=== PATIENT | male | born 1975 | race Caucasian/White ===

== ENCOUNTER 2017-12-02 15:06 | Outpatient (CLI) | payer BC, SELFPAY ==
[2017-12-02 15:37] LABS: Abs Immature Grans 0.01 k/cumm (0.0-0.09); Absolute Basophil Count 0.03 k/cumm (0.0-0.2); Absolute Lymphocyte Count 1.02 k/cumm (1.2-3.4); Absolute Neutrophil Count 1.99 k/cumm (1.2-6.7); Basophils % 0.8; Eosinophils % 2.8; HCT 39.7 % (40.0-50.0); HGB 14.1 g/dL (13.5-17.5); Immature Grans % 0.3; Lymphocytes % 28.7; Mean Corp. HGB Concentration 35.5 g/dL (32.0-36.0); Mean Corpuscular Hemoglobin 31.5 pg (27.0-33.0); Mean Corpuscular Volume 88.8 fL (80-95); Monocytes % 11.3; Neutrophils % 56.1; Platelet Count 181 x1000/uL (130-400); RBC 4.47 m/cumm (4.50-6.00); RBC Distribution Width 11.9 % (11.8-14.1); White Blood Cell Count 3.55 k/cumm (4.4-10.8)
[2017-12-02 16:34] LABS: ALT 41 U/L (12-78); AST 24 U/L (15-37); Alkaline Phosphatase 67 U/L (46-116); Anion Gap 7.4 mmol/L (3-11); BUN 13 mg/dL (7-18); Bilirubin, Total 0.3 mg/dL (0.2-1.0); CO2 29.6 mmol/L (21.0-32.0); CREATININE 0.86 mg/dL (0.70-1.30); Calcium 8.6 mg/dL (8.5-10.1); Chloride 105 mmol/L (98-107); Glucose 108 mg/dL (70-100); LDH 157 U/L (85-227); Potassium 3.6 mmol/L (3.5-5.1); Sodium 142 mmol/L (136-145); Total Protein 7.2 g/dL (6.4-8.2)
[2017-12-03 18:54] LABS: Beta-HCG, Quant, Tumor Marker <0.6 IU/L (<1.4)
[2017-12-04 10:06] LABS: AFP Tumor Marker 2.2 ng/mL (<8.1)
== END 2017-12-02 15:26 ==
PROVIDERS: PCP Nurse Practitioner Family; Visit Provider Internal Medicine
DX: C62.90 Malignant neoplasm of unspecified testis, unspecified whether descended or undescended (principal)
CPT/HCPCS: 36415; 80053; 82105; 83615; 84702; 85025

== ENCOUNTER 2018-09-30 10:28 | Outpatient (CLI) | payer BC, SELFPAY ==
[2018-09-30 12:04] LABS: Calculated LDL 117 mg/dL; Cholesterol 204 mg/dL (50-200); HDL Cholesterol 39 mg/dL (40-60); Triglyceride 242 mg/dL (30-150)
== END 2018-09-30 10:48 ==
PROVIDERS: PCP Nurse Practitioner Family; Visit Provider Nurse Practitioner Family
DX: Z13.220 Encounter for screening for lipoid disorders (principal)
CPT/HCPCS: 36415; 80061; 83721

== ENCOUNTER 2021-02-01 15:08 | Outpatient (CLI) | payer BC, SELFPAY ==
--- NOTE | 2021-02-01 15:00 | DI.RAD_ITS ---
Exam(s) XR TIB/FIB LT EXAM: XR TIB/FIB LT CLINICAL HISTORY: chronic gramajo pain gramajo splint vs. stress fx,M79.623 TECHNIQUE: COMPARISON: No exams were available for comparison FINDINGS: Four views were obtained. No bony or soft tissue abnormality seen. There is no specific evidence of a stress fracture. If there is a high clinical suspicion of stress fracture, additional evaluation with MR may be considered. IMPRESSION: RADIATION DOSE DELIVERED: Total DLP
== END 2021-02-01 15:28 ==
PROVIDERS: PCP Nurse Practitioner Family; Visit Provider Nurse Practitioner Family
DX: M79.662 Pain in left lower leg (principal)
CPT/HCPCS: 73590

== ENCOUNTER 2021-03-09 03:22 | Outpatient (CLI) | payer BC, SELFPAY ==
[2021-03-10 10:26] LABS: HIV-1/2 Ag & Ab Screen Negative (Negative)
== END 2021-03-09 03:23 | disposition home or self-care (01) ==
PROVIDERS: PCP Nurse Practitioner Family; Visit Provider Nurse Practitioner Family
DX: Z11.4 Encounter for screening for human immunodeficiency virus [HIV] (principal)
CPT/HCPCS: 36415; 87389

== ENCOUNTER 2021-03-14 02:57 | Outpatient (CLI) | payer BC, SELFPAY ==
[2021-03-14 12:46] LABS: Abs Immature Grans 0.01 10^3/uL (0.0-0.06); Absolute Basophil Count 0.04 10^3/uL (0.0-0.2); Absolute Eosinophil Count 0.16 10^3/uL (0.0-0.7); Absolute Lymphocyte Count 1.15 10^3/uL (1.2-3.4); Absolute Monocyte Count 0.38 10^3/uL (0.1-0.8); Absolute Neutrophil Count 1.97 10^3/uL (1.2-6.7); Basophils % 1.1; Eosinophils % 4.3; HGB 14.4 g/dL (13.5-17.5); Immature Grans % 0.3; MCH 30.3 pg (27.0-33.0); MCHC 34.3 % (32.0-36.0); MCV 88.2 fL (80-95); MPV 9.2 fL (8.0-11.0); Monocytes % 10.2; Neutrophils % 53.1; Nucleated RBC 0 %; Platelet Count 193 10^3/uL (130-400); RBC 4.76 10^6/uL (4.36-5.78); RDW-SD 39.3 fL; WBC 3.71 10^3/uL (4.4-10.8)
[2021-03-14 13:29] LABS: ALT 34 U/L (16-63); AST 21 U/L (15-37); Albumin 4.3 g/dL (3.4-5.0); Alkaline Phosphatase 62 U/L (46-116); BUN 12 mg/dL (7-18); Bilirubin, Total 0.4 mg/dL (0.2-1.0); CREATININE 0.9 mg/dL (0.70-1.30); Calcium 8.7 mg/dL (8.5-10.1); Chloride 101 mmol/L (98-107); Glucose 102 mg/dL (74-106); LDH 138 U/L (85-227); Potassium 4.2 mmol/L (3.5-5.1); Sodium 139 mmol/L (136-145); Total Protein 7.6 g/dL (6.4-8.2)
[2021-03-15 09:27] LABS: AFP Tumor Marker 4.7 ng/mL (<8.1)
[2021-03-15 13:05] LABS: Beta-HCG, Quant, Tumor Marker <0.6 IU/L (<1.4)
== END 2021-03-14 02:58 | disposition home or self-care (01) ==
LOC: LBO 02:58
PROVIDERS: PCP Nurse Practitioner Family; Visit Provider Internal Medicine
DX: Z85.47 Personal history of malignant neoplasm of testis (principal)
CPT/HCPCS: 36415; 80053; 82105; 83615; 84702; 85025

== ENCOUNTER 2021-03-15 10:00 | Outpatient (CLI) | payer BC, SELFPAY ==
--- NOTE | 2021-03-15 | DI.RAD_ITS ---
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 TECHNIQUE: 2D digital imaging was performed. COMPARISON: CR CHEST 2 VIEWS PA,LAT from 10/19/2016 FINDINGS: Heart size is normal. The mediastinum is not widened. Lungs are presently clear. Previously present right lower lobe infiltrate which was evident in 2017 has resolved. No infiltrates nor pleural effusions. Right shoulder arthroplasty again noted. IMPRESSION: No acute pulmonary findings. DATA REPOSITORY: RADIATION DOSE DELIVERED:
== END 2021-03-15 10:20 ==
PROVIDERS: PCP Nurse Practitioner Family; Visit Provider Internal Medicine
DX: Z08 Encounter for follow-up examination after completed treatment for malignant neoplasm (principal); Z85.47 Personal history of malignant neoplasm of testis
CPT/HCPCS: 71046

== ENCOUNTER 2021-06-15 03:23 | Observation (INO) | payer BC, SELFPAY ==
[2021-06-15] VITALS (26 sets, daily range): BP systolic 116–132; BP diastolic 66–80; PULSE 52–64; RESP 10–21; TEMP 36.3–36.9; O2SAT 94–98
--- NOTE | 2021-06-15 | DI.MRI_ITS ---
Exam(s) MR BRAIN WO EXAM: MR BRAIN WO CLINICAL HISTORY: head injury TECHNIQUE: Multiplanar multisequence MRI of the brain was performed. COMPARISON: CT CT HEAD WO from 06/15/2021 FINDINGS: VENTRICLES AND EXTRA AXIAL SPACES: Normal in size and morphology for the patient's age. MIDLINE SHIFT: None. CEREBRAL PARENCHYMA: No focus of restricted diffusion to suggest acute infarct. No space-occupying le gali identified. HEMORRHAGE: None. BRAINSTEM/CEREBELLUM: Normal. CALVARIUM: Normal. VISUALIZED PARANASAL SINUSES/MASTOIDS:Clear. [place] OF [place]: Normal flow void. PITUITARY GLAND: Unremarkable. OTHER FINDINGS: None. IMPRESSION: Unremarkable MRI of the brain. DATA REPOSITORY:
--- NOTE | 2021-06-15 03:15 | DI.CT_ITS ---
Exam(s) CT CHEST/ABD/PEL W CT THORACIC LUMBAR SPINE REC EXAM: CT CHEST/ABD/PEL W CLINICAL HISTORY: pain between shoulder blades, fall, trauma. TECHNIQUE: Imaging Protocol: Axial computed tomography images with coronal and sagittal reformatted images were created and reviewed CONTRAST MATERIAL: Intravenous: Omnipaque 350 Contrast volume:100 ml Oral: no COMPARISON: CT CHEST ABD PELVIS WITH CONTRAST from 12/17/[address] THORACIC LUMBAR SPINE REC from 06/15/2021 FINDINGS: CHEST: Tracheobronchial tree: Patent where visualized. Mediastinum and Phyllis: No dominant adenopathy or fluid collection. Pulmonary parenchyma: Dependent changes. No consolidation or dominant measurable mass. Pleura: No effusion or pneumothorax. Lymph nodes: Within normal limits. Aorta: Thoracic portion non-dilated. Heart: Normal size. Bones: Unremarkable for age. No evidence of fracture.. Minimal degenerative changes in the thoracic spine. Right shoulder prosthesis. ABDOMEN: Liver: Normal density. No measurable mass. Gallbladder and biliary tract: No radiodense calculus or dilation. Pancreas: Normal density, no abnormal calcifications or inflammatory process. Spleen: Normal. Kidneys: Normal size, contour and axis. No radiodense stones or obstructive uropathy. No masses seen. Adrenal glands: No masses seen. Aorta: Abdominal portion non-dilated. Lymph nodes: Within normal limits. Soft tissues: Unremarkable. PELVIS: Bladder: Symmetric distention, no gross wall thickening. Bowel: Increased stool descending rectosigmoid. No obstruction or bowel wall thickening. Peritoneal cavity: No ascites, collection or mesenteric inflammatory response. Bones: Lumbar spine: Old right sided transverse process fractures. Degenerative disc changes at L3-4 and L4-5. no pelvic fracture. Reproductive organs: Within normal limits. IMPRESSION: No acute abnormality in the chest abdomen or pelvis.. Old right-sided transverse process fractures i n the lumbar spine. No acute fracture. RADIATION DOSE DELIVERED: 1486.26 mGy.cm Total DLP DATA REPOSITORY: All CT scans at this facility are submitted to the National Radiology Data Registry (NRDR) Dose Index Registry (DIR) with the [employer] (ACR). RADIATION OPTIMIZATION: All CT scans at this facility use at least one of these dose optimization te chniques: automated exposure control; mA and/or kV adjustment per patient size (includes targeted exa ms where dose is matched to clinical indication); or iterative reconstruction.
--- NOTE | 2021-06-15 03:15 | DI.CT_ITS ---
Exam(s) CT HEAD CERVICAL SPINE WO EXAM: CT HEAD CERVICAL SPINE WO CLINICAL HISTORY: trauma, fall. TECHNIQUE: Imaging Protocol: Axial computed tomography images with coronal and sagittal reformatted images were created and reviewed COMPARISON: No exams were available for comparison FINDINGS: Head CT Ventricles and Extra axial spaces: Normal in size and morphology for the patient's age. Hemorrhage: None. Cerebral parenchyma: Normal. Midline shift: None. Brainstem/Cerebellum: Normal. Calvarium: Normal. Visualized Paranasal sinuses/Mastoids: Clear. Cervical Spine CT BONES: Vertebral body heights are maintained. Alignment is normal. There is no evidence of acute frac ture. Degenerative disc changes degenerative changes are seen at C5-6. . SOFT TISSUES: No paraspinal hematoma. The airway appears intact. No pneumothorax is seen at the lung apices. IMPRESSION: Head CT: No acute abnormality. C-spine CT: Mild degenerative changes, no acute abnormality. RADIATION DOSE DELIVERED: 1,621.67mGy.cm Total DLP DATA REPOSITORY: All CT scans at this facility are submitted to the National Radiology Data Registry (NRDR) Dose Index Registry (DIR) with the [employer] (ACR). RADIATION OPTIMIZATION: All CT scans at this facility use at least one of these dose optimization te chniques: automated exposure control; mA and/or kV adjustment per patient size (includes targeted exa ms where dose is matched to clinical indication); or iterative reconstruction.
--- NOTE | 2021-06-15 03:28 | W.ED.GENAD ---
Discharge Plan Disposition Patient Disposition: [facility] INPATIENT Condition: Stable Discharge Details Clinical Impression: Fall, Head trauma, Observed seizure-like activity Admit Date/Time: 06/15/21 04:49 Admit Provider: Asa Berger Attending Provider: Asa Berger Primary Care Provider: Lindsey Dhillon ED Provider: Ronald Matias Medical Decision Making 343--45-year-old male here after slip and fall on ice with head trauma, subsequent loss of consciousness and questionable seizure activity, vomiting in route. Patient seems fatigued and slightly altered with GCS of 14. He is complaining of neck pain and pain between his shoulder blades. Patient is hemodynamically stable. I am concerned about acute life-threatening intracranial traumatic hemorrhage as well as cervical fracture or vascular injury. Plan to obtain CT imaging. I will maintain spinal precautions. 430-- CT head, ctl spine and chest/abd/pelv interpreted by radiology and negative for acute injury. Suspect severe concussion. cpsine cleared by me - no midline tenderness. He is tender left posterior lateral neck over trapezius. Given mechanism, LOC and seizure activity, ongoing nausea, plan for hospitalization for observation and potential repeat CT head. 442 --screening EKG was reviewed and interpreted by me: Sinus bradycardia 56 bpm, prolonged FL with FL interval of 216, ST elevation noted 1mm or less, likely benign early repolarization. Patient has no chest pain but will send troponin. I spoke with Dr. Montero, on-call hospitalist, discussed ED presentation and course, she will admit the patient. HPI General Mode of arrival: EMS. Date/Time Provider Initiated Documentation: 06/15/21 03:24. Limitations to Documentation: no limitations. Information obtained by: patient and EMS. HPI Narrative: 45-year-old male presents with EMS with chief complaint of neck pain. Patient apparently slipped and fell on ice outside his home and struck his head. He then went inside and apparently lost consciousness in the bathroom and fell again. There was questionable seizure activity. He then regained consciousness. EMS notes a few episodes of vomiting in route. He has complained of neck pain as well as pain deep between his scapula. Pain is moderate. No modifiers. Patient denies associated chest pain or abdominal pain. He did describe to EMS having lower back pain at scene with movement. He has no associated numbness or tingling in his lower extremities. Patient was given Zofran ODT by EMS. IV was established by EMS. Related Data Home Medications Medication Instructions Recorded Confirmed acetaminophen 500 mg tablet 1,000 mg PO Q6H PRN 10/08/16 06/15/21 fluocinonide-emollient 0.05 % 1 applic TOPICAL 2-4 times daily 02/25/20 06/15/21 topical cream (Fluocinonide-E) PRN #60 gm albuterol sulfate 90 mcg/actuation 1 - 2 puff INHALATION .Q4-6H PRN 05/20/20 06/15/21 aerosol inhaler (ProAir HFA) #1 unit montelukast 10 mg tablet 10 mg PO DAILY #90 tab-cap 10/05/20 06/15/21 (Singulair) ibuprofen 200 mg capsule 400 mg PO Q6H PRN cap 02/01/21 06/15/21 cetirizine 10 mg tablet (Zyrtec) 10 mg PO DAILY #90 tab-cap 05/03/21 06/15/21 Previous Rx's Medication Instructions Recorded fluocinonide-emollient 0.05 % 1 applic TOPICAL 2-4 times daily 02/25/20 topical cream (Fluocinonide-E) PRN #60 gm albuterol sulfate 90 mcg/actuation 1 - 2 puff INHALATION .Q4-6H PRN 05/20/20 aerosol inhaler (ProAir HFA) #1 unit montelukast 10 mg tablet 10 mg PO DAILY #90 tab-cap 10/05/20 (Singulair) cetirizine 10 mg tablet (Zyrtec) 10 mg PO DAILY #90 tab-cap 05/03/21 Allergies Allergy/AdvReac Type Severity Reaction Status Date / Time dander Allergy Intermediate nasal Uncoded 06/15/21 03:26 congestion/asthma General Stated Complaint: HeadInjury ANNALISE: 2 Review of Systems Narrative: patient slightly altered limiting ros Eyes Eyes: Denies loss of vision Cardiovascular Cardiovascular: Denies chest pain and Denies dyspnea Respiratory Respiratory: Denies dyspnea Gastrointestinal Gastrointestinal: Denies abdominal pain Musculoskeletal Musculoskeletal: Reports as per HPI Neurologic Neurologic: Reports as per HPI and Denies loss of vision PFSH All Active Problems (Updated 06/15/21 @ 07:19 by Antonette Cortez MD) Concussion (Acute) Neck muscle strain (Acute) Hypokalemia (Acute) Fall (Acute) Head trauma (Acute) Observed seizure-like activity (Acute) Hyperlipidemia, unspecified (Chronic) 09/2018 labs: 10-year ASCVD risk = ~1.7% Asthma (Chronic 09/19/12) Spirometry 06/2011--mild obstructive airway disease with sig bronchodilator response Atopic dermatitis (Chronic) Surgical History Excision Lipoma, Neck (12/17/14) R shoulder surgery (~2006) x2 (2006 Michelle at [facility] then 2011 Jyoti at [facility]) Retroperitoneal lymph node dissection, robot-assisted (08/28/16) For recurrent non-seminomatous germ cell tumor. 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 [employer] Pets and animals: Yes Pets and animals: dog(s) and other Details: Hedgehog Sexually active: Yes Do you think of yourself as: straight/heterosexual Current gender identity: male What is your relationship status?: How often do you talk on the phone with friends or family?: twice per week How often do you get together with friends or relatives?: once per week Do you belong to any clubs or organized social groups?: no Panel score (0-1 are the most socially isolated patients): 2 What type of physical activity do you participate in: bicycling, resistance training, other Details: rowing and running Duration: 45-60 minutes/day Frequency: 5-6 times per week Special lexi needs: No Seatbelt use: always Helmet use: Yes Drive intox or ride w/intox warehouse delivery driver: No Water heater temp set <120 deg: Yes Working smoke detector in home: Yes Fire extinguisher in home: Yes Carbon monox detector in home: Yes Firearms in home: No Do you feel safe at home: Yes Do you feel safe in your relationship?: Yes Exam Const General: cooperative HENMT Mouth: moist mucous membranes Eyes EOM: EOM intact bilaterally Neck Neck: trachea midline and supple Resp Auscultation: clear to auscultation bilaterally, no rales, no rhonchi and no wheezes Cardio Rate: bradycardic (50-60s) Rhythm: regular rhythm GI Palpation: soft, not firm, no guarding, no masses, not rigid and nontender Back/Spine/Pelvis Cervical Spine: collar present Skin Trauma: abrasion (rt hand) Neuro General: patient alert, patient awake, patient oriented x3 and tone normal Cranial Nerves: PERRL Speech: speech normal Motor: strength 5/5 throughout Sensory Exam: no sensory deficits noted Other: GCS 14 [id number] Extrem General: no edema Psych Appearance: grossly normal Course Vital Signs Vital signs: Vital Signs Temperature 36.5 C 06/15/21 03:22 Pulse 56 L 06/15/21 03:22 Respiratory Rate 13 06/15/21 03:22 Blood Pressure 132/78 06/15/21 03:22 Pulse Oximetry 98 06/15/21 03:22 Temperature 36.5 C 06/15/21 03:22 Temperature Source Skin 06/15/21 03:22 Pulse 56 L 06/15/21 03:22 Respiratory Rate 13 06/15/21 03:22 Blood Pressure 132/78 06/15/21 03:22 Blood Pressure Position Supine 06/15/21 03:22 Pulse Oximetry 98 06/15/21 03:22 Oxygen Delivery Method Room Air 06/15/21 03:22 Oxygen Flow Rate 0 06/15/21 03:22 Pain Level 8 06/15/21 03:22
[2021-06-15 03:38] LABS: Abs Immature Grans 0.03 10^3/uL (0.0-0.06); Absolute Basophil Count 0.07 10^3/uL (0.0-0.2); Absolute Eosinophil Count 0.21 10^3/uL (0.0-0.7); Absolute Lymphocyte Count 2.05 10^3/uL (1.2-3.4); Absolute Neutrophil Count 2.49 10^3/uL (1.2-6.7); Basophils % 1.3; Eosinophils % 3.9; HCT 41.6 % (40.0-50.0); HGB 14.2 g/dL (13.5-17.5); Immature Grans % 0.6; Lymphocytes % 38.3; MCH 30.1 pg (27.0-33.0); MCHC 34.1 % (32.0-36.0); MCV 88.1 fL (80-95); MPV 9.5 fL (8.0-11.0); Monocytes % 9.3; Neutrophils % 46.6; Nucleated RBC 0 %; Platelet Count 206 10^3/uL (130-400); RBC 4.72 10^6/uL (4.36-5.78); RDW 11.9 % (11.8-14.1); RDW-SD 37.9 fL; WBC 5.35 10^3/uL (4.4-10.8)
[2021-06-15 03:57] LABS: ALT 32 U/L (16-63); AST 17 U/L (15-37); Albumin 4.3 g/dL (3.4-5.0); Alkaline Phosphatase 54 U/L (46-116); Anion Gap 8.7 mmol/L (3-11); BUN 16 mg/dL (7-18); Bilirubin, Total 0.3 mg/dL (0.2-1.0); CO2 27.3 mmol/L (21.0-32.0); Calcium 8.8 mg/dL (8.5-10.1); Chloride 103 mmol/L (98-107); Glucose 153 mg/dL (74-106); Potassium 3.2 mmol/L (3.5-5.1); Sodium 139 mmol/L (136-145); Total Protein 7.7 g/dL (6.4-8.2)
[2021-06-15] MEDS: Omnipaque 350 MG/ML 100 ML BTL IJ (03:57)
[2021-06-15] MEDS: Normal Saline Flush 10 ML SYR IVP ×2 (03:58→04:45)
--- NOTE | 2021-06-15 04:10 | DI.VRAD_ITS ---
PROCEDURE INFORMATION: Exam: CT Head Without Contrast Exam date and time: 06/15/2021 3:41 AM Age: 45 years old Clinical indication: Injury or trauma; Concussion/head injury; Consciousness not specified; Injury date: 06/15/21; Injury details: Fall, trauma TECHNIQUE: Imaging protocol: Computed tomography of the head without contrast. Radiation optimization: All CT scans at this facility use at least one of these dose optimization techniques: automated exposure control; mA and/or kV adjustment per patient size (includes targeted exams where dose is matched to clinical indication); or iterative reconstruction. COMPARISON: 1. SOFT TISSUE HEAD OR NECK US ([id number]) 10/04/2014 1:32 PM 2. MR NECK SOFT TISSUE^ROUTINE 10/12/2014 10:28 AM FINDINGS: Brain: There is mild diffuse cerebral atrophy present. No hemorrhage. Unremarkable white matter. No mass effect. Cerebral ventricles: No ventriculomegaly. Paranasal sinuses: Visualized sinuses are unremarkable. No fluid levels. Mastoid air cells: Visualized mastoid air cells are well aerated. Bones/joints: Unremarkable. No acute fracture. Soft tissues: Unremarkable. IMPRESSION: No acute intracranial abnormality. PROCEDURE INFORMATION: Exam: CT Cervical Spine Without Contrast Exam date and time: 06/15/2021 3:41 AM Age: 45 years old Clinical indication: Injury or trauma; Concussion/head injury; Consciousness not specified; Injury date: 06/15/21; Injury details: Fall, trauma TECHNIQUE: Imaging protocol: Computed tomography images of the cervical spine without contrast. Radiation optimization: All CT scans at this facility use at least one of these dose optimization techniques: automated exposure control; mA and/or kV adjustment per patient size (includes targeted exams where dose is matched to clinical indication); or iterative reconstruction. COMPARISON: 1. SOFT TISSUE HEAD OR NECK US ([id number]) 10/04/2014 1:32 PM 2. MR NECK SOFT TISSUE^ROUTINE 10/12/2014 10:28 AM FINDINGS: Bones/joints: No acute fracture. Normal alignment. Endplate degenerative changes at the C5-C6 level. Discs/Spinal canal/Neural foramina: No significant disc protrusion. No severe spinal canal stenosis. No significant neural foraminal narrowing. Lungs: Lung apices are normal. Soft tissues: Unremarkable. IMPRESSION: 1. No acute fracture or subluxation. 2. Degenerative changes at the C5-C6 level. Dictated and Authenticated by: Francisco Traylor MD. Ordering:LUIS Cardenas MD
--- NOTE | 2021-06-15 04:19 | DI.VRAD_ITS ---
PROCEDURE INFORMATION: Exam: CT Chest With Contrast; Diagnostic Exam date and time: 06/15/2021 3:45 AM Age: 45 years old Clinical indication: Injury or trauma; Generalized; Blunt trauma (contusions or hematomas); Injury date: 06/15/21; Injury details: Fall, trauma, pain between shoulder blades TECHNIQUE: Imaging protocol: Diagnostic computed tomography of the chest with contrast. Radiation optimization: All CT scans at this facility use at least one of these dose optimization techniques: automated exposure control; mA and/or kV adjustment per patient size (includes targeted exams where dose is matched to clinical indication); or iterative reconstruction. Contrast material: OMNI 350; Contrast volume: 100 ml; Contrast route: INTRAVENOUS (IV); COMPARISON: 1. CT CHEST ABD PELVIS WITH CONTRAST 03/19/2017 11:[address] CHEST ABD PELVIS WITH CONTRAST 12/17/2016 9:14 AM FINDINGS: Lungs: Unremarkable. No consolidation. No masses. Pleural spaces: Unremarkable. No pneumothorax. No pleural effusion. Heart: Unremarkable. No cardiomegaly. No pericardial effusion. Aorta: Unremarkable. No aortic aneurysm. Lymph nodes: Unremarkable. No enlarged lymph nodes. Bones/joints: Unremarkable. No acute fracture. Soft tissues: Unremarkable. IMPRESSION: No acute findings. PROCEDURE INFORMATION: Exam: CT Abdomen And Pelvis With Contrast Exam date and time: 06/15/2021 3:45 AM Age: 45 years old Clinical indication: Injury or trauma; Generalized; Blunt trauma (contusions or hematomas); Injury date: 06/15/21; Injury details: Fall, trauma, pain between shoulder blades TECHNIQUE: Imaging protocol: Computed tomography of the abdomen and pelvis with contrast. Radiation optimization: All CT scans at this facility use at least one of these dose optimization techniques: automated exposure control; mA and/or kV adjustment per patient size (includes targeted exams where dose is matched to clinical indication); or iterative reconstruction. Contrast material: OMNI 350; Contrast volume: 100 ml; Contrast route: INTRAVENOUS (IV); COMPARISON: 1. CT CHEST ABD PELVIS WITH CONTRAST 03/19/2017 11:[address] CHEST ABD PELVIS WITH CONTRAST 12/17/2016 9:14 AM FINDINGS: Liver: Normal. No mass. Gallbladder and bile ducts: Normal. No calcified stones. No ductal dilation. Pancreas: Normal. No ductal dilation. Spleen: Normal. No splenomegaly. Adrenal glands: Normal. No mass. Kidneys and ureters: Normal. No hydronephrosis. Stomach and bowel: Unremarkable. No obstruction. No mucosal thickening. Appendix: No evidence of appendicitis. Intraperitoneal space: Unremarkable. No free air. No significant fluid collection. Vasculature: Unremarkable. No abdominal aortic aneurysm. Lymph nodes: Unremarkable. No enlarged lymph nodes. Urinary bladder: Unremarkable as visualized. Reproductive: Unremarkable as visualized. Bones/joints: Unremarkable. No acute fracture. Soft tissues: Unremarkable. IMPRESSION: No acute findings. Dictated and Authenticated by: Asa Reis MD. Ordering:LUIS Cardenas MD
--- NOTE | 2021-06-15 04:30 | RT.EKG_ITS ---
APPROVED REPORT Exam: Resting ECG Reason for Exam: loss of consciousness Patient Location: E HR:56 bpm ECG Measurements Heart Rate 56 AXIS MS 216 P 5 QRSd 104 QRS 52 QT 430 T 36 QTc 415 Conclusion Sinus bradycardia...rate< 60 Prolonged MS interval...MS >210, V-rate 50- 90 ST elev, probable normal early repol pattern...ST elevation, age<55
[2021-06-15] MEDS: Ondansetron 4 MG/2 ML VIAL IVP (04:45)
[2021-06-15] MEDS: Lactated Ringers 1,000 ML 125 ML IV (04:45)
[2021-06-15 04:55] LABS: Source Nasal/Nares
[2021-06-15 05:02] LABS: Troponin I < 50 ng/L (<or=60)
[2021-06-15] MEDS: Potassium Chloride Liquid 20 MEQ PKT 40 MEQ PO (06:16)
--- NOTE | 2021-06-15 06:57 | W.PM.HP.N ---
Date of service: 06/15/21 Time of Service: 04:50 Assessment and Plan Assessment and plan (1) Fall: Status: Acute Assessment and plan: Mechanical slip on ice with subsequent fall. No further work up needed. (2) Head trauma: Status: Acute Assessment and plan: With LOC. Initialy CT is negative. Given delayed LOC there is potential for occult or slow bleeding process such as a subdural hematoma. - will repeat head CT at 10 am (7 hours after initial) out of an abundance of caution to rule out a slow bleed (3) Observed seizure-like activity: Status: Acute Assessment and plan: Single episode with no history of seizures in the past. 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 - follows with [facility] (7) Neck muscle strain: Status: Acute Assessment and plan: Likely similar in pathology to whip lash - would start Tylenol as needed or possibly muscle relaxants if this worsens (8) Concussion: Status: Acute Assessment and plan: - as above will repeat head CT to ensure no slo bleeding - standard concussion procedures History of Present Illness Narrative: This is a 45 yo man who has a 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 He was taking his dogs out this morning and slipped on a step. He fell but did not immediately lose consciousness. He did not scrape his head (no bleeding) but he did hit his head. He went back inside to use the restroom at which point he lost consciousness. He found him unconscious on the ground and witness an apparent seizure. He was brought to the ED where he was found to be somnolent but awake and alert. He was montalvo scanned with no abnormalities found (no brain bleed). On my assessment he is easily arousable and pleasant. He is having a stiff neck and back but no headache. He has no other complaints. He has no history of seizures previously and has had no other episodes since admission. Review of Systems All systems reviewed & are unremarkable except as noted in HPI and below PFSH All Active Problems (Updated 06/15/21 @ 07:19 by Antonette Cortez MD) Concussion (Acute) Neck muscle strain (Acute) Hypokalemia (Acute) Fall (Acute) Head trauma (Acute) Observed seizure-like activity (Acute) Hyperlipidemia, unspecified (Chronic) 09/2018 labs: 10-year ASCVD risk = ~1.7% Asthma (Chronic 09/19/12) Spirometry 06/2011--mild obstructive airway disease with sig bronchodilator response Atopic dermatitis (Chronic) Surgical History Excision Lipoma, Neck (12/17/14) R shoulder surgery (~2006) x2 (2006 Michelle at [facility] then 2011 Jyoti at [facility]) Retroperitoneal lymph node dissection, robot-assisted (08/28/16) For recurrent non-seminomatous germ cell tumor. 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 [employer] Pets and animals: Yes Pets and animals: dog(s) and other Details: Hedgehog Sexually active: Yes Do you think of yourself as: straight/heterosexual Current gender identity: male What is your relationship status?: How often do you talk on the phone with friends or family?: twice per week How often do you get together with friends or relatives?: once per week Do you belong to any clubs or organized social groups?: no Panel score (0-1 are the most socially isolated patients): 2 What type of physical activity do you participate in: bicycling, resistance training, other Details: rowing and running Duration: 45-60 minutes/day Frequency: 5-6 times per week Special lexi needs: No Seatbelt use: always Helmet use: Yes Drive intox or ride w/intox cdl flatbed truck driver: No Water heater temp set <120 deg: Yes Working smoke detector in home: Yes Fire extinguisher in home: Yes Carbon monox detector in home: Yes Firearms in home: No Do you feel safe at home: Yes Do you feel safe in your relationship?: Yes Meds Allergies and Home Medications Allergies Allergy/AdvReac Type Severity Reaction Status Date / Time dander Allergy Intermediate nasal Uncoded 06/15/21 03:26 congestion/asthma Home Medications Medication Instructions Recorded Confirmed Type acetaminophen 500 mg tablet 1,000 mg PO Q6H PRN 10/08/16 06/15/21 History fluocinonide-emollient 0.05 % 1 applic TOPICAL 2-4 times daily 02/25/20 06/15/21 Rx topical cream (Fluocinonide-E) PRN #60 gm albuterol sulfate 90 mcg/actuation 1 - 2 puff INHALATION .Q4-6H PRN 05/20/20 06/15/21 Rx aerosol inhaler (ProAir HFA) #1 unit montelukast 10 mg tablet 10 mg PO DAILY #90 tab-cap 10/05/20 06/15/21 Rx (Singulair) ibuprofen 200 mg capsule 400 mg PO Q6H PRN cap 02/01/21 06/15/21 History cetirizine 10 mg tablet (Zyrtec) 10 mg PO DAILY #90 tab-cap 05/03/21 06/15/21 Rx Exam Narrative Exam Narrative: Gen: NAD, normal respiratory effort, well-nourished HENT: PERRL Chest: No respiratory distress, normal appearance of chest, clear to auscultation bilaterally, no crackles or wheezes, normal inspiratory effort Heart: regular rate and rhythym, no murmurs, rubs or gallops Abdomen: Non-distended, soft, non tender Extremities: No clubbing, edema, cyanosis, rashes Neuro: AAOx3 , non focal, moves all limbs Psych: cooperative, appropriate mental affect Results Labs Result diagrams: 06/15/21 03:30 06/15/21 03:30 Labs: Laboratory Results - last 24 hr 06/15/21 06/15/21 06/15/21 03:30 03:30 03:30 WBC 5.35 RBC 4.72 Hgb 14.2 Hct 41.6 MCV 88.1 MCH 30.1 MCHC 34.1 RDW 11.9 Plt Count 206 MPV 9.5 Immature Gran % 0.6 Neutrophils % 46.6 Band Neutrophils % Lymphocytes % 38.3 Atypical Lymphs % Monocytes % 9.3 Eosinophils % 3.9 Basophils % 1.3 Metamyelocytes % Myelocytes % Promyelocytes % Other Cells % Nucleated RBC % 0 Absolute Neutrophils 2.49 Absolute Lymphocytes 2.05 Absolute Monocytes 0.50 Absolute Eosinophils 0.21 Absolute Basophils 0.07 RBC Morphology Polychromasia Hypochromasia Poikilocytosis Basophilic Stippling Anisocytosis Microcytosis Macrocytosis Spherocytes Tear Drop Cells Ovalocytes Stomatocytes [place] Bodies Cleine Cells/Echinocytes Acanthocytes (Spur) Schistocytes Sodium 139 Potassium 3.2 L Chloride 103 Carbon Dioxide 27.3 Anion Gap 8.7 BUN 16 Creatinine 1.0 Estimated GFR/1.73 m2 >= 60.00 Glucose 153 H Calcium 8.8 Total Bilirubin 0.3 AST 17 ALT 32 Alkaline Phosphatase 54 Troponin I Total Protein 7.7 Albumin 4.3 COVID-19 Source Patient ABO/Rh A Negative Antibody Screen NEGATIVE 06/15/21 06/15/21 06/15/21 03:30 04:51 05:35 WBC RBC Hgb Hct MCV MCH MCHC RDW Plt Count MPV Immature Gran % Neutrophils % Band Neutrophils % Lymphocytes % Atypical Lymphs % Monocytes % Eosinophils % Basophils % Metamyelocytes % Myelocytes % Promyelocytes % Other Cells % Nucleated RBC % Absolute Neutrophils Absolute Lymphocytes Absolute Monocytes Absolute Eosinophils Absolute Basophils RBC Morphology Polychromasia Hypochromasia Poikilocytosis Basophilic Stippling Anisocytosis Microcytosis Macrocytosis Spherocytes Tear Drop Cells Ovalocytes Stomatocytes [place] Bodies [place] Cells/Echinocytes Acanthocytes (Spur) Schistocytes Sodium Cancelled Potassium Cancelled Chloride Cancelled Carbon Dioxide Cancelled Anion Gap Cancelled BUN Cancelled Creatinine Cancelled Estimated GFR/1.73 m2 Cancelled Glucose Cancelled Calcium Cancelled Total Bilirubin AST ALT Alkaline Phosphatase Troponin I < 50 Total Protein Albumin COVID-19 Source Nasal/Nares Patient ABO/Rh Antibody Screen 06/15/21 05:35 WBC Cancelled RBC Cancelled Hgb Cancelled Hct Cancelled MCV Cancelled MCH Cancelled MCHC Cancelled RDW Cancelled Plt Count Cancelled MPV Cancelled Immature Gran % Cancelled Neutrophils % Cancelled Band Neutrophils % Cancelled Lymphocytes % Cancelled Atypical Lymphs % Cancelled Monocytes % Cancelled Eosinophils % Cancelled Basophils % Cancelled Metamyelocytes % Cancelled Myelocytes % Cancelled Promyelocytes % Cancelled Other Cells % Cancelled Nucleated RBC % Cancelled Absolute Neutrophils Cancelled Absolute Lymphocytes Cancelled Absolute Monocytes Cancelled Absolute Eosinophils Cancelled Absolute Basophils Cancelled RBC Morphology Cancelled Polychromasia Cancelled Hypochromasia Cancelled Poikilocytosis Cancelled Basophilic Stippling Cancelled Anisocytosis Cancelled Microcytosis Cancelled Macrocytosis Cancelled Spherocytes Cancelled Tear Drop Cells Cancelled Ovalocytes Cancelled Stomatocytes Cancelled [place] Bodies Cancelled Celine Cells/Echinocytes Cancelled Acanthocytes (Spur) Cancelled Schistocytes Cancelled Sodium Potassium Chloride Carbon Dioxide Anion Gap BUN Creatinine Estimated GFR/1.73 m2 Glucose Calcium Total Bilirubin AST ALT Alkaline Phosphatase Troponin I Total Protein Albumin COVID-19 Source Patient ABO/Rh Antibody Screen Last Vital Signs Temp 36.9 C 06/15/21 05:30 Pulse 56 L 06/15/21 05:30 Resp 16 06/15/21 05:30 BP 123/67 06/15/21 05:30 Pulse Ox 98 06/15/21 05:30
[2021-06-15 08:01] LABS: Prothrombin Time 10.3 sec (9.3-11.0)
[2021-06-15 08:12] LABS: Troponin I < 50 ng/L (<or=60)
[2021-06-15 08:18] LABS: Magnesium 2.1 mg/dL (1.8-2.4); TSH (W/Ref FT4) 0.93 uIU/mL (0.36-3.74)
[2021-06-15 08:54] LABS: COVID-19 PCR Negative (Negative)
--- NOTE | 2021-06-15 10:00 | DI.CT_ITS ---
Exam(s) CT HEAD WO EXAM: CT HEAD WO CLINICAL HISTORY: head injury. TECHNIQUE: Imaging Protocol: Axial computed tomography images with coronal and sagittal reformatted images were created and reviewed COMPARISON: CT CT HEAD CERVICAL SPINE WO from 06/15/2021 FINDINGS: Ventricles and Extra axial spaces: Normal in size and morphology for the patient's age. Hemorrhage: None. Cerebral parenchyma: Normal. Midline shift: None. Brainstem/Cerebellum: Normal. Calvarium: Normal. Visualized Paranasal sinuses/Mastoids: Clear. Soft Tissues: Unremarkable. IMPRESSION: No acute intracranial process. RADIATION DOSE DELIVERED: 817.21mGy.cm Total DLP DATA REPOSITORY: All CT scans at this facility are submitted to the National Radiology Data Registry (NRDR) Dose Index Registry (DIR) with the [employer] (ACR). RADIATION OPTIMIZATION: All CT scans at this facility use at least one of these dose optimization te chniques: automated exposure control; mA and/or kV adjustment per patient size (includes targeted exa ms where dose is matched to clinical indication); or iterative reconstruction.
--- NOTE | 2021-06-15 15:36 | NCONE_ITS ---
Date of service: 06/15/21 Time of Service: 15:36 Assessment and Plan Assessment and plan (1) Concussion: Status: Acute (2) Observed seizure-like activity: Status: Acute Assessment and plan: Mr. Whitlock is a 45 year-old, right-handed man admitted after 2 unwitnessed falls followed by seizure-like activity. He is now back to baseline but has swelling/bruising over his right cheek, is quite sore all over, fatigued, and with a mild headache. His neurological exam and brain imaging are both unremarkable/normal. We discussed incidence, recurrence, etc of seizures following acute head injuries. Given lack of hemorrhage, I do not see a role for anti-seizure medications at this time. We discussed diagnosis of concussion and reduced activity over the next days with increased hydration and rest. He will use ibuprofen for headaches, ondansetron for nausea, and Flexeril for body aches/spasms. We discussed use of NAC to speed up recovery from concussion: 4000mg x 1 now, then 2000mg BID x 3 days, then 1500mg BID x 3 days. ADRs discussed. He was agreeable. No driving restrictions as this was considered provoked, however, he should take it easy until he feels better. He did not desire follow-up at this time, but will contact me if he does not c ontinue to improve. History of Present Illness History of Present Illness Chief Complaint: fall and ?seizure Narrative: Handedness: right. Mr. Whitlock is a 45 year-old man with testicular cancer now in remission. Early this am, he went outside to let his dog out. He apparently slipped on the icy steps. He recalls his back hitting the steps. He is not sure if he hit his head or lost consciousness. He recalls it taking a minute or two to get up and get going. He recalls walking back into the house and then turning into the bathroom. The next thing he recalls is waking on the ground and hearing his call 911. notes that she heard him come in the house, but was unaware that he had slipped on the ice. She then heard a big bang so came downstairs where she found him mcfp in the bathroom door, face down with his arms underneath him, breathing ominously. She managed to roll him over on to his back when he had a few brief generalized myoclonic jerks. And then slowly started to arouse. She called 911 and he was brought to the ER. He has personal history of seizures. He has no family history of seizures. He has no history of prior head injury nor history of IT MANAGER infection. He has a slight headache. He is sore all over. Tired. Work-up: -CTH (06/15/21): No acute findings. I reviewed these images personally and this is my personal interpretation. -CTH (06/15/21): No acute findings. I reviewed these images personally and this is my personal interpretation. -MRI Brain (06/15/21): Unremarkable. I reviewed these images personally and this is my personal interpretation. -EEG (06/15/21): normal awake and asleep and during photic/HV. Review of Systems All systems reviewed & are unremarkable except as noted in HPI and below PFSH All Active Problems Concussion (Acute) Neck muscle strain (Acute) Hypokalemia (Acute) Fall (Acute) Head trauma (Acute) Observed seizure-like activity (Acute) Hyperlipidemia, unspecified (Chronic) 09/2018 labs: 10-year ASCVD risk = ~1.7% Asthma (Chronic 09/19/12) Spirometry 06/2011--mild obstructive airway disease with sig bronchodilator response Atopic dermatitis (Chronic) Surgical History Excision Lipoma, Neck (12/17/14) R shoulder surgery (~2006) x2 (2006 Michelle at [facility] then [address] [facility]) Retroperitoneal lymph node dissection, robot-assisted (08/28/16) For recurrent non-seminomatous germ cell tumor. 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 [employer] Pets and animals: Yes Pets and animals: dog(s) and other Details: Hedgehog Sexually active: Yes Do you think of yourself as: straight/heterosexual Current gender identity: male What is your relationship status?: How often do you talk on the phone with friends or family?: twice per week How often do you get together with friends or relatives?: once per week Do you belong to any clubs or organized social groups?: no Panel score (0-1 are the most socially isolated patients): 2 What type of physical activity do you participate in: bicycling, resistance training, other Details: rowing and running Duration: 45-60 minutes/day Frequency: 5-6 times per week Special lexi needs: No Seatbelt use: always Helmet use: Yes Drive intox or ride w/intox nascar driver: No Water heater temp set <120 deg: Yes Working smoke detector in home: Yes Fire extinguisher in home: Yes Carbon monox detector in home: Yes Firearms in home: No Do you feel safe at home: Yes Do you feel safe in your relationship?: Yes Visit Medication and Allergies Active Medications Generic Name Dose Route Start Last Admin Trade Name Freq PRN Reason Stop Dose Admin Acetaminophen 650 mg 06/15/21 14:50 Acetaminophen 325 Mg Tab PO Q6H PRN PRN Albuterol Sulfate 1 - 2 puff 06/15/21 04:55 Albuterol Hfa 8 Gm 60 Puff Inh IH Q4H PRN PRN shortness of breath /wheezing Cyclobenzaprine HCl 10 mg 06/15/21 14:50 Cyclobenzaprine 10 Mg Tab PO TID PRN PRN Device 1 each 06/15/21 05:00 Inhaler, Assist Device DIRECTED [facility] Dimethicone/Zinc Oxide 0 gm 06/15/21 04:49 Jet Protect Cream 142 Gm Tube TP PRN PRN Sodium Chloride 500 mls @ 0 mls/hr 06/15/21 03:24 Saline 500ml Bag IV PRN PRN As Directed IV Miscellaneous Supplies 1 each 06/15/21 03:30 Iv Access IV DIRECTED [facility] Ibuprofen 800 mg 06/15/21 14:50 Ibuprofen 800 Mg Tab PO QID PRN PRN Ondansetron HCl 4 mg 06/15/21 04:36 06/15/21 04:45 Ondansetron 4 Mg/2 Ml Vial IVP 4 mg Q8H PRN PRN Administration Sodium Chloride 0 ml 06/15/21 03:24 06/15/21 04:45 Normal Saline Flush 10 Ml Syr IVP 10 ml PRN PRN Administration Allergies dander Allergy (Intermediate, Uncoded 06/15/21 03:26) nasal congestion/asthma Exam Narrative Exam Narrative: Physical Exam: Gen: Patient of apparent stated age, NAD Head and face: swelling and bruising over right cheek around the eye. Skin abrasion on top of his head. Neck: Supple, no meningismus, no occipital tenderness CV: + S1, S2, RRR, no murmur Resp: CTA B/L Abd: soft, nontender, nondistended Ext: No edema. No clubbing or cyanosis. No bony deformity. Neuro Exam: Language: fluency, naming, repetition, and comprehension intact; Mental Status: AAOx3, current events intact, fund of knowledge intact; Speech: no dysarthria Cranial nerves: Funduscopy: not performed CN II: visual buitrago intact CN III, IV, : extraocular movements intact, no nystagmus, pupils symmetric and reactive to light CN V: face sensation intact to LT and PP CN VII: right eye less open than left due to swelling CN VIII: hearing intact bilaterally CN IX, X: palate rises symmetrically CN XI: trapezius/SCM 5/5 bilaterally CN XII: protrudes tongue symmetrically Sensory: intact to LT, PP, vibration, and joint position in all extremities Motor: bulk and tone intact. Fine motor movements intact bilaterally. No pronator drift. Strength 5/5 throughout including the deltoids, biceps, triceps, wrist extensors, hip flexors, knee flexors, knee extensors, ankle flexors, and ankle extensors. Reflexes: 2+ at the biceps, triceps, brachioradialis, patella, and achilles tendons bilaterally; toes down going bilaterally; Coordination: FTN intact bilaterally Gait: not tested Results Last Vital Signs Temp 98.1 F 06/15/21 14:41 Pulse 64 06/15/21 14:41 Resp 18 06/15/21 14:41 BP 127/76 06/15/21 14:41 Pulse Ox 94 06/15/21 14:41 Labs Result diagrams: 06/15/21 03:30 06/15/21 03:30 Labs: Laboratory Results - last 24 hr 06/15/21 06/15/21 06/15/21 03:30 03:30 03:30 WBC 5.35 RBC 4.72 Hgb 14.2 Hct 41.6 MCV 88.1 MCH 30.1 MCHC 34.1 RDW 11.9 Plt Count 206 MPV 9.5 Immature Gran % 0.6 Neutrophils % 46.6 Band Neutrophils % Lymphocytes % 38.3 Atypical Lymphs % Monocytes % 9.3 Eosinophils % 3.9 Basophils % 1.3 Metamyelocytes % Myelocytes % Promyelocytes % Other Cells % Nucleated RBC % 0 Absolute Neutrophils 2.49 Absolute Lymphocytes 2.05 Absolute Monocytes 0.50 Absolute Eosinophils 0.21 Absolute Basophils 0.07 RBC Morphology Polychromasia Hypochromasia Poikilocytosis Basophilic Stippling Anisocytosis Microcytosis Macrocytosis Spherocytes Tear Drop Cells Ovalocytes Stomatocytes [place] Bodies [place] Cells/Echinocytes Acanthocytes (Spur) Schistocytes PT INR Sodium 139 Potassium 3.2 L Chloride 103 Carbon Dioxide 27.3 Anion Gap 8.7 BUN 16 Creatinine 1.0 Estimated GFR/1.73 m2 >= 60.00 Glucose 153 H Calcium 8.8 Magnesium Total Bilirubin 0.3 AST 17 ALT 32 Alkaline Phosphatase 54 Troponin I Total Protein 7.7 Albumin 4.3 TSH COVID-19 Source SARS-CoV-2 (PCR) Patient ABO/Rh A Negative Antibody Screen NEGATIVE 06/15/21 06/15/21 06/15/21 03:30 04:51 05:35 WBC RBC Hgb Hct MCV MCH MCHC RDW Plt Count MPV Immature Gran % Neutrophils % Band Neutrophils % Lymphocytes % Atypical Lymphs % Monocytes % Eosinophils % Basophils % Metamyelocytes % Myelocytes % Promyelocytes % Other Cells % Nucleated RBC % Absolute Neutrophils Absolute Lymphocytes Absolute Monocytes Absolute Eosinophils Absolute Basophils RBC Morphology Polychromasia Hypochromasia Poikilocytosis Basophilic Stippling Anisocytosis Microcytosis Macrocytosis Spherocytes Tear Drop Cells Ovalocytes Stomatocytes [place] Bodies [place] Cells/Echinocytes Acanthocytes (Spur) Schistocytes PT INR Sodium Cancelled Potassium Cancelled Chloride Cancelled Carbon Dioxide Cancelled Anion Gap Cancelled BUN Cancelled Creatinine Cancelled Estimated GFR/1.73 m2 Cancelled Glucose Cancelled Calcium Cancelled Magnesium Total Bilirubin AST ALT Alkaline Phosphatase Troponin I < 50 Total Protein Albumin TSH COVID-19 Source Nasal/Nares SARS-CoV-2 (PCR) Negative Patient ABO/Rh Antibody Screen 06/15/21 06/15/21 06/15/21 05:35 07:36 07:36 WBC Cancelled RBC Cancelled Hgb Cancelled Hct Cancelled MCV Cancelled MCH Cancelled MCHC Cancelled RDW Cancelled Plt Count Cancelled MPV Cancelled Immature Gran % Cancelled Neutrophils % Cancelled Band Neutrophils % Cancelled Lymphocytes % Cancelled Atypical Lymphs % Cancelled Monocytes % Cancelled Eosinophils % Cancelled Basophils % Cancelled Metamyelocytes % Cancelled Myelocytes % Cancelled Promyelocytes % Cancelled Other Cells % Cancelled Nucleated RBC % Cancelled Absolute Neutrophils Cancelled Absolute Lymphocytes Cancelled Absolute Monocytes Cancelled Absolute Eosinophils Cancelled Absolute Basophils Cancelled RBC Morphology Cancelled Polychromasia Cancelled Hypochromasia Cancelled Poikilocytosis Cancelled Basophilic Stippling Cancelled Anisocytosis Cancelled Microcytosis Cancelled Macrocytosis Cancelled Spherocytes Cancelled Tear Drop Cells Cancelled Ovalocytes Cancelled Stomatocytes Cancelled [place] Bodies Cancelled [place] Cells/Echinocytes Cancelled Acanthocytes (Spur) Cancelled Schistocytes Cancelled PT INR Sodium Potassium Chloride Carbon Dioxide Anion Gap BUN Creatinine Estimated GFR/1.73 m2 Glucose Calcium Magnesium 2.1 Total Bilirubin AST ALT Alkaline Phosphatase Troponin I < 50 Total Protein Albumin TSH 0.93 COVID-19 Source SARS-CoV-2 (PCR) Patient ABO/Rh Antibody Screen 06/15/21 07:36 WBC RBC Hgb Hct MCV MCH MCHC RDW Plt Count MPV Immature Gran % Neutrophils % Band Neutrophils % Lymphocytes % Atypical Lymphs % Monocytes % Eosinophils % Basophils % Metamyelocytes % Myelocytes % Promyelocytes % Other Cells % Nucleated RBC % Absolute Neutrophils Absolute Lymphocytes Absolute Monocytes Absolute Eosinophils Absolute Basophils RBC Morphology Polychromasia Hypochromasia Poikilocytosis Basophilic Stippling Anisocytosis Microcytosis Macrocytosis Spherocytes Tear Drop Cells Ovalocytes Stomatocytes [place] Bodies Celine Cells/Echinocytes Acanthocytes (Spur) Schistocytes PT 10.3 INR 1.0 Sodium Potassium Chloride Carbon Dioxide Anion Gap BUN Creatinine Estimated GFR/1.73 m2 Glucose Calcium Magnesium Total Bilirubin AST ALT Alkaline Phosphatase Troponin I Total Protein Albumin TSH COVID-19 Source SARS-CoV-2 (PCR) Patient ABO/Rh Antibody Screen
[2021-06-15] MEDS: Cyclobenzaprine 10 MG TAB PO (15:37)
[2021-06-15] MEDS: Ibuprofen 800 MG TAB PO (15:37)
--- NOTE | 2021-06-15 16:10 | DSE_ITS ---
Date of service: 06/15/21 Time of Service: 16:10 DS: Diagnosis Discharge Diagnosis (1) Fall: Status: Acute (2) Head trauma: Status: Acute (3) Observed seizure-like activity: Status: Acute (4) Asthma: Status: Chronic (5) Hypokalemia: Status: Acute (6) Germ cell carcinoma of testicle: Status: Resolved (7) Neck muscle strain: Status: Acute (8) Concussion: Status: Acute Discharge Plan Disposition Patient Disposition: HOME Condition: Stable Discharge Details Reason For Visit: Seizure Admit Date/Time: 06/15/21 04:49 Admit Provider: Asa Berger Attending Provider: Asa Berger [facility] Hospital Course: 45 year old male who had a mechanical slip and fall on ice with head injury. reported loss of consciousness with questionable seizure activity and vomiting post injury who presented to the ED for evaluation. initial imaging was negative for acure intracranial process. he was referred to observation for repeat imaging and further monitoring. His repeat CT scan again was un remarkable. neurology consult placed and MRI and EEG also unremarkable. recommendations for acetylcysteine initiated and will finish a 6 day recommended course. He was prescribed ondansetron and flexeril. safe for discharge to home. no services, pcp follow up. discharge discussed with DR Oliver. 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 Take 2 tablets every 6 hours as needed for pain. Do not exceed 4000mg per 24 hours. fluocinonide-emollient [Fluocinonide-E] 0.05 % cream 1 applic Topical 2-4 times daily PRN Qty: 60 3RF Rx Instructions: Apply thin layer to affected areas (hands) 2 to 4 times daily PRN until resolution albuterol sulfate [ProAir HFA] 90 mcg/actuation HFA aerosol inhaler 1 - 2 puff Inhalation .Q4-6H PRN (Reason: shortness of breath or wheezing) Qty: 1 3RF Rx Instructions: DISPENSE COVERED BRAND OF ALBUTEROL montelukast [Singulair] 10 mg tablet 10 mg PO DAILY Qty: 90 3RF cetirizine [Zyrtec] 10 mg tablet 10 mg PO DAILY Qty: 90 3RF Rx Instructions: DX: ALLERGIC ASTHMA Discharge Instructions Instructions: Concussion (DC) Additional Instructions: you have been given 3600 mg of acetylcysteine today, then take 2000 mg twice daily for 3 days, then take 1500 mg twice daily for 3 more days, then stop. Stand Alone Forms: Nursing Discharge Form Referrals: Lindsey Dhillon NP [Primary Care Provider] - (Please call to follow up in 1-2 weeks ) Activity:: Activity as Tolerated Equipment/Supplies:: No Equipment Needed Diet:: As Tolerated Discharge Orders Discharge Orders: Discharge Order (Routine); Ordered 06/15/21 Ordered By: Nadine Mitchell Discharge Data Discharge Date/Time-TO BE ENTERED AT DEPARTURE: 06/15/21 16:49 DS: Summary Time Spent with Patient providing and/or coordinating discharge services: Less than 30 minutes Status at Discharge Functional status at discharge: independent ambulation Overall status at discharge: patient is progressing back to baseline Mental Status: mental status grossly normal Speech and Movement: speech and movement normal Mood: congruent mood Affect: normal affect Exam Psych Mental Status: mental status grossly normal Speech and Movement: speech and movement normal Mood: congruent mood Affect: normal affect DS: Data Vitals/I&O Vitals and I&O: Vital Signs Temperature 36.7 C 06/15/21 14:41 Temperature Source Tympanic 06/15/21 14:41 Pulse 64 06/15/21 14:41 Pulse Rhythm Regular 06/15/21 10:16 Pulse 56 L 06/15/21 05:20 Respiratory Rate 18 06/15/21 14:41 Respiratory Effort 06/15/21 10:16 Respiratory Depth Normal 06/15/21 10:16 Respiratory Pattern Normal 06/15/21 10:16 Blood Pressure 127/76 06/15/21 14:41 Blood Pressure Mean 80 06/15/21 05:16 Blood Pressure Position Supine 06/15/21 03:22 Pulse Oximetry 94 06/15/21 14:41 Oxygen Delivery Method Room Air 06/15/21 14:41 Oxygen Flow Rate 0 06/15/21 14:41 Pain Level 7 06/15/21 14:41 Intake & Output 06/14/21 06/15/21 06/15/21 23:59 11:59 23:59 Weight 94.4 kg Other: Urine Appearance Clear Comment Per patient he has been up voiding Data Completed and Pending Labs on day of discharge: Labs from last 24 hours 06/15/21 06/15/21 06/15/21 07:36 07:36 07:36 WBC RBC Hgb Hct MCV MCH MCHC RDW Plt Count MPV Immature Gran % Neutrophils % Band Neutrophils % Lymphocytes % Atypical Lymphs % Monocytes % Eosinophils % Basophils % Metamyelocytes % Myelocytes % Promyelocytes % Other Cells % Nucleated RBC % Absolute Neutrophils Absolute Lymphocytes Absolute Monocytes Absolute Eosinophils Absolute Basophils RBC Morphology Polychromasia Hypochromasia Poikilocytosis Basophilic Stippling Anisocytosis Microcytosis Macrocytosis Spherocytes Tear Drop Cells Ovalocytes Stomatocytes [place] Bodies [place] Cells/Echinocytes Acanthocytes (Spur) Schistocytes PT 10.3 INR 1.0 Sodium Potassium Chloride Carbon Dioxide Anion Gap BUN Creatinine Estimated GFR/1.73 m2 Glucose Calcium Magnesium 2.1 Total Bilirubin AST ALT Alkaline Phosphatase Troponin I < 50 Total Protein Albumin TSH 0.93 COVID-19 Source SARS-CoV-2 (PCR) Patient ABO/Rh Antibody Screen 06/15/21 06/15/21 06/15/21 05:35 05:35 04:51 WBC Cancelled RBC Cancelled Hgb Cancelled Hct Cancelled MCV Cancelled MCH Cancelled MCHC Cancelled RDW Cancelled Plt Count Cancelled MPV Cancelled Immature Gran % Cancelled Neutrophils % Cancelled Band Neutrophils % Cancelled Lymphocytes % Cancelled Atypical Lymphs % Cancelled Monocytes % Cancelled Eosinophils % Cancelled Basophils % Cancelled Metamyelocytes % Cancelled Myelocytes % Cancelled Promyelocytes % Cancelled Other Cells % Cancelled Nucleated RBC % Cancelled Absolute Neutrophils Cancelled Absolute Lymphocytes Cancelled Absolute Monocytes Cancelled Absolute Eosinophils Cancelled Absolute Basophils Cancelled RBC Morphology Cancelled Polychromasia Cancelled Hypochromasia Cancelled Poikilocytosis Cancelled Basophilic Stippling Cancelled Anisocytosis Cancelled Microcytosis Cancelled Macrocytosis Cancelled Spherocytes Cancelled Tear Drop Cells Cancelled Ovalocytes Cancelled Stomatocytes Cancelled [place] Bodies Cancelled [place] Cells/Echinocytes Cancelled Acanthocytes (Spur) Cancelled Schistocytes Cancelled PT INR Sodium Cancelled Potassium Cancelled Chloride Cancelled Carbon Dioxide Cancelled Anion Gap Cancelled BUN Cancelled Creatinine Cancelled Estimated GFR/1.73 m2 Cancelled Glucose Cancelled Calcium Cancelled Magnesium Total Bilirubin AST ALT Alkaline Phosphatase Troponin I Total Protein Albumin TSH COVID-19 Source Nasal/Nares SARS-CoV-2 (PCR) Negative Patient ABO/Rh Antibody Screen 06/15/21 06/15/21 06/15/21 03:30 03:30 03:30 WBC 5.35 RBC 4.72 Hgb 14.2 Hct 41.6 MCV 88.1 MCH 30.1 MCHC 34.1 RDW 11.9 Plt Count 206 MPV 9.5 Immature Gran % 0.6 Neutrophils % 46.6 Band Neutrophils % Lymphocytes % 38.3 Atypical Lymphs % Monocytes % 9.3 Eosinophils % 3.9 Basophils % 1.3 Metamyelocytes % Myelocytes % Promyelocytes % Other Cells % Nucleated RBC % 0 Absolute Neutrophils 2.49 Absolute Lymphocytes 2.05 Absolute Monocytes 0.50 Absolute Eosinophils 0.21 Absolute Basophils 0.07 RBC Morphology Polychromasia Hypochromasia Poikilocytosis Basophilic Stippling Anisocytosis Microcytosis Macrocytosis Spherocytes Tear Drop Cells Ovalocytes Stomatocytes [place] Bodies [place] Cells/Echinocytes Acanthocytes (Spur) Schistocytes PT INR Sodium Potassium Chloride Carbon Dioxide Anion Gap BUN Creatinine Estimated GFR/1.73 m2 Glucose Calcium Magnesium Total Bilirubin AST ALT Alkaline Phosphatase Troponin I < 50 Total Protein Albumin TSH COVID-19 Source SARS-CoV-2 (PCR) Patient ABO/Rh A Negative Antibody Screen NEGATIVE 06/15/21 03:30 WBC RBC Hgb Hct MCV MCH MCHC RDW Plt Count MPV Immature Gran % Neutrophils % Band Neutrophils % Lymphocytes % Atypical Lymphs % Monocytes % Eosinophils % Basophils % Metamyelocytes % Myelocytes % Promyelocytes % Other Cells % Nucleated RBC % Absolute Neutrophils Absolute Lymphocytes Absolute Monocytes Absolute Eosinophils Absolute Basophils RBC Morphology Polychromasia Hypochromasia Poikilocytosis Basophilic Stippling Anisocytosis Microcytosis Macrocytosis Spherocytes Tear Drop Cells Ovalocytes Stomatocytes [place] Bodies [place] Cells/Echinocytes Acanthocytes (Spur) Schistocytes PT INR Sodium 139 Potassium 3.2 L Chloride 103 Carbon Dioxide 27.3 Anion Gap 8.7 BUN 16 Creatinine 1.0 Estimated GFR/1.73 m2 >= 60.00 Glucose 153 H Calcium 8.8 Magnesium Total Bilirubin 0.3 AST 17 ALT 32 Alkaline Phosphatase 54 Troponin I Total Protein 7.7 Albumin 4.3 TSH COVID-19 Source SARS-CoV-2 (PCR) Patient ABO/Rh Antibody Screen PFSH All Active Problems (Updated 06/15/21 @ 07:19 by Antonette Cortez MD) Concussion (Acute) Neck muscle strain (Acute) Hypokalemia (Acute) Fall (Acute) Head trauma (Acute) Observed seizure-like activity (Acute) Hyperlipidemia, unspecified (Chronic) 09/2018 labs: 10-year ASCVD risk = ~1.7% Asthma (Chronic 09/19/12) Spirometry 06/2011--mild obstructive airway disease with sig bronchodilator response Atopic dermatitis (Chronic) Surgical History Excision Lipoma, Neck (12/17/14) R shoulder surgery (~2006) x2 (2006 Michelle at [facility] then 2011 Jyoti at [facility]) Retroperitoneal lymph node dissection, robot-assisted (08/28/16) For recurrent non-seminomatous germ cell [place] 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 [employer] Pets and animals: Yes Pets and animals: dog(s) and other Details: Hedgehog Sexually active: Yes Do you think of yourself as: straight/heterosexual Current gender identity: male What is your relationship status?: How often do you talk on the phone with friends or family?: twice per week How often do you get together with friends or relatives?: once per week Do you belong to any clubs or organized social groups?: no Panel score (0-1 are the most socially isolated patients): 2 What type of physical activity do you participate in: bicycling, resistance training, other Details: rowing and running Duration: 45-60 minutes/day Frequency: 5-6 times per week Special lexi needs: No Seatbelt use: always Helmet use: Yes Drive intox or ride w/intox retail delivery driver: No Water heater temp set <120 deg: Yes Working smoke detector in home: Yes Fire extinguisher in home: Yes Carbon monox detector in home: Yes Firearms in home: No Do you feel safe at home: Yes Do you feel safe in your relationship?: Yes
[2021-06-15] MEDS: Acetylcysteine 600 MG CAP 3600 MG PO (16:50)
--- NOTE | 2021-06-15 19:32 | PDOC.EEG_ITS ---
Neurology EEG EEG: [facility] Department of Neurology INPATIENT EEG REPORT Date of Recordin06/15/21 Interpreting Physician: Dr. Mag Gonzalez Reason for study: Mr. Whitlock is a 45 year-old man admitted after 2 unwitnessed falls and then seizure-like activity. Current Medications: Home Medications Medication Instructions Recorded Confirmed Type acetaminophen 500 mg tablet 1,000 mg PO Q6H PRN 10/08/16 06/15/21 History fluocinonide-emollient 0.05 % 1 applic TOPICAL 2-4 times daily 02/25/20 06/15/21 Rx topical cream (Fluocinonide-E) PRN #60 gm albuterol sulfate 90 mcg/actuation 1 - 2 puff INHALATION .Q4-6H PRN 05/20/20 06/15/21 Rx aerosol inhaler (ProAir HFA) #1 unit montelukast 10 mg tablet 10 mg PO DAILY #90 tab-cap 10/05/20 06/15/21 Rx (Singulair) ibuprofen 200 mg capsule 400 mg PO Q6H PRN cap 02/01/21 06/15/21 History cetirizine 10 mg tablet (Zyrtec) 10 mg PO DAILY #90 tab-cap 05/03/21 06/15/21 Rx acetylcysteine 500 mg capsule 1,500 mg PO BID #1 cap 06/15/21 Rx acetylcysteine 500 mg capsule 2,000 mg PO BID #1 cap 06/15/21 Rx cyclobenzaprine 10 mg tablet 10 mg PO TID PRN PRN #20 tab 06/15/21 Rx ondansetron 4 mg disintegrating 4 mg PO Q4H PRN #20 tab 06/15/21 Rx tablet METHODS: A 21 channel digitized electroencephalogram was performed in the [facility] Med/Surg Floor or ICU. The 10/20 international system of electrode placement was used and bipolar and referential electrode montages were recorded. In addition to EEG the patient was monitored for EKG and lat eral/vertical eye movements. Activation procedures of photic stimulation and hyperventilation were performed if applicable. Video was used during activation procedures and during events where applicable. The duration of the recording was 30 minutes. DESCRIPTION OF EEG: The patient was noted to be awake, drowsy, and asleep during the recording. During maximal wakefulness a 10-Hz posterior background rhythm was present which was well-modulated, symmetrical, reactive to eye opening, and of moderate voltage. With eye opening the background activity changed to a low voltage mixture of alpha, beta, and occasional theta range frequencies. Faster frequencies were present in the bilateral anterior head regions. There was a normal anterior-posterior voltage gradient. During drowsiness, there was attenuation of the posterior dominant background rhythm and vertex waves. Stage II sleep was present with symmetrical sleep spindles, K-complexes, and vertex waves. Activating Procedures: Photic stimulation was performed which produced no posterior driving response. Hyperventilation was performed with moderate effort and produced no physiological slowing of the background. EKG: EKG revealed normal sinus rhythm. INTERPRETATION: This EEG is normal during the awake and sleep states as well as during photic stimulation and hyperventilation. PRIOR EEG: none CLINICAL CORRELATION: No focal regions of cerebral dysfunction or epileptiform activity was present. Epilepsy remains a clinical diagnosis and a normal EEG does not rule out epilepsy. Clinical correlation is advised. Mag Gonzalez MD
== END 2021-06-15 16:49 | disposition home or self-care (01) ==
LOC: ER 05:28 → MS 05:30
PROVIDERS: Student in an Organized Health Care Education/Training Program; Admitting Provider Family Medicine; Emergency Provider Student in an Organized Health Care Education/Training Program; PCP Nurse Practitioner Family; Visit Provider Family Medicine
DX: S16.1XXA Strain of muscle, fascia and tendon at neck level, initial encounter (principal); J45.30 Mild persistent asthma, uncomplicated; E87.6 Hypokalemia; Z79.899 Other long term (current) drug therapy; E78.5 Hyperlipidemia, unspecified; S06.0X9A Concussion with loss of consciousness of unspecified duration, initial encounter; L20.9 Atopic dermatitis, unspecified; R56.9 Unspecified convulsions; Z85.47 Personal history of malignant neoplasm of testis; W00.1XXA Fall from stairs and steps due to ice and snow, initial encounter; W18.30XA Fall on same level, unspecified, initial encounter
CPT/HCPCS: 36415; 74177; 80048; 80053; 86850; 86900; 86901; 87635; 93005; 95819; 96361; 96374; 99285; 70450; 70551; 71260; 72125; 83735; 84443; 84484; 85025; 85610; 93010; 99235; G0378; J2405; J3490

== ENCOUNTER 2022-01-26 01:23 | Outpatient (CLI) | payer BC, SELFPAY ==
[2022-01-26 09:33] LABS: Calculated LDL 139 mg/dL (<100); Cholesterol 213 mg/dL (<200); HDL Cholesterol 46 mg/dL (40-60); Triglyceride 141 mg/dL (<150)
== END 2022-01-26 01:24 | disposition home or self-care (01) ==
LOC: LBO 01:23
PROVIDERS: Absent Provider Nurse Practitioner Family; PCP Nurse Practitioner Family; Referring Provider Nurse Practitioner Family; Visit Provider Nurse Practitioner Family
DX: E78.5 Hyperlipidemia, unspecified (principal)
CPT/HCPCS: 36415; 80061

== ENCOUNTER 2022-04-12 09:50 | Outpatient (CLI) | payer BC, SELFPAY ==
[2022-04-12 13:26] LABS: Abs Immature Grans 0.01 10^3/uL (0.0-0.06); Absolute Basophil Count 0.05 10^3/uL (0.0-0.2); Absolute Eosinophil Count 0.15 10^3/uL (0.0-0.7); Absolute Lymphocyte Count 1.08 10^3/uL (1.2-3.4); Absolute Monocyte Count 0.33 10^3/uL (0.1-0.8); Absolute Neutrophil Count 1.63 10^3/uL (1.2-6.7); Basophils % 1.5; Eosinophils % 4.6; HCT 41.2 % (40.0-50.0); HGB 14.7 g/dL (13.5-17.5); Immature Grans % 0.3; Lymphocytes % 33.2; MCH 31.1 pg (27.0-33.0); MCHC 35.7 % (32.0-36.0); MCV 87 fL (80-95); MPV 9.6 fL (8.0-11.0); Monocytes % 10.2; Neutrophils % 50.2; Platelet Count 191 10^3/uL (130-400); RBC 4.73 10^6/uL (4.36-5.78); RDW 11.9 % (11.8-14.1); RDW-SD 38.2 fL; WBC 3.25 10^3/uL (4.4-10.8)
[2022-04-12 13:45] LABS: ALT 32 U/L (16-63); AST 20 U/L (15-37); Albumin 4.4 g/dL (3.4-5.0); Alkaline Phosphatase 59 U/L (46-116); Anion Gap 7.5 mmol/L (3-11); BUN 14 mg/dL (7-18); Bilirubin, Total 0.6 mg/dL (0.2-1.0); CO2 28.5 mmol/L (21.0-32.0); Calcium 9.1 mg/dL (8.5-10.1); Chloride 103 mmol/L (98-107); Estimated GFR 95.18 (mL/min/1.73m2); Glucose 120 mg/dL (74-106); LDH 148 U/L (85-227); Potassium 3.7 mmol/L (3.5-5.1); Sodium 139 mmol/L (136-145)
[2022-04-13 07:54] LABS: AFP Tumor Marker 2.8 ng/mL (<8.1)
[2022-04-13 19:28] LABS: Beta-HCG, Quant, Tumor Marker <0.6 IU/L (<1.4)
== END 2022-04-12 09:51 | disposition home or self-care (01) ==
PROVIDERS: PCP Nurse Practitioner Family; Visit Provider Nurse Practitioner Family
DX: Z85.47 Personal history of malignant neoplasm of testis (principal)
CPT/HCPCS: 36415; 80053; 82105; 83615; 84702; 85025

== ENCOUNTER → 2022-12-03 02:56 | Outpatient (CLI) | payer BC, SELFPAY ==
--- NOTE | 2022-12-03 | DI.CT_ITS ---
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 TECHNIQUE: Imaging Protocol: Axial computed tomography images with coronal and sagittal reformatted images were created and reviewed CONTRAST MATERIAL: Intravenous: Omnipaque 350 Contrast volume:100 ml Oral: yes COMPARISON: CT CT CHEST/ABD/PEL W from 06/15/2021 FINDINGS: CHEST: Tracheobronchial tree: Patent where visualized. Pulmonary parenchyma: No consolidation or dominant measurable mass. Pleura: No effusion or pneumothorax. Lymph nodes: Within normal limits. Aorta: Thoracic portion non-dilated. Heart: Normal size. No pericardial effusion Bones: Right shoulder prosthesis. No lytic or blastic lesions.No compression fractures. ABDOMEN and PELVIS: Liver: Normal density. No measurable mass. Stable tiny cyst right lobe. Gallbladder and biliary tract: No evidence of stones or wall thickening. No biliary dilatation. Pancreas: Normal density, no abnormal calcifications or inflammatory process. Spleen: Normal. Kidneys: Normal size, contour and axis. No radiodense stones or obstructive uropathy. No suspicious m asses seen. Adrenal glands: No masses seen. Aorta: Abdominal portion non-dilated. No significant atherosclerotic changes. Retroperitoneal davin gical clips. Lymph nodes: Within normal limits. Soft tissues: Unremarkable. Bladder: Unremarkable. Bowel: No obstruction or bowel wall thickening. Peritoneal cavity: No ascites. No focal collection or mesenteric inflammatory response. Bones: Degenerative disc changes L3-4 and L4-5. Old right-sided L1 through L3 transverse process fra ctures. No lytic or blastic lesions. Reproductive organs: Prostate normal in size. Status post left orchiectomy. Small amount of fat ext ending into the left inguinal canal. IMPRESSION: No evidence of metastatic disease or other acute abnormality in the chest, abdomen or pelvis.. RADIATION DOSE DELIVERED: 2,093.3mGy.cm Total DLP DATA REPOSITORY: All CT scans at this facility are submitted to the National Radiology Data Registry (NRDR) Dose Index Registry (DIR) with the [employer] (ACR). RADIATION OPTIMIZATION: All CT scans at this facility use at least one of these dose optimization te chniques: automated exposure control; mA and/or kV adjustment per patient size (includes targeted exa ms where dose is matched to clinical indication); or iterative reconstruction.
[2022-12-03] MEDS: Barium Sulfate 2% W/V-Berry Smoothie 450 ML BTL 900 ML PO (09:21)
[2022-12-03 09:22] LABS: Absolute Basophil Count 0.03 10^3/uL (0.0-0.2); Absolute Eosinophil Count 0.16 10^3/uL (0.0-0.7); Absolute Lymphocyte Count 0.94 10^3/uL (1.2-3.4); Absolute Monocyte Count 0.26 10^3/uL (0.1-0.8); Absolute Neutrophil Count 1.69 10^3/uL (1.2-6.7); Eosinophils % 5.2; HCT 45.6 % (40.0-50.0); HGB 15.7 g/dL (13.5-17.5); Lymphocytes % 30.5; MCH 30.3 pg (27.0-33.0); MCHC 34.4 % (32.0-36.0); MCV 88 fL (80-95); MPV 9.1 fL (8.0-11.0); Monocytes % 8.4; Neutrophils % 54.9; Platelet Count 212 10^3/uL (130-400); RBC 5.19 10^6/uL (4.36-5.78); RDW 11.8 % (11.8-14.1); RDW-SD 37.7 fL; WBC 3.08 10^3/uL (4.4-10.8)
[2022-12-03 09:38] LABS: ALT 35 U/L (16-63); AST 19 U/L (15-37); Albumin 4.8 g/dL (3.4-5.0); Alkaline Phosphatase 63 U/L (46-116); Anion Gap 8.2 mmol/L (3-11); BUN 11 mg/dL (7-18); Bilirubin, Total 0.5 mg/dL (0.2-1.0); CO2 28.8 mmol/L (21.0-32.0); Calcium 9.7 mg/dL (8.5-10.1); Chloride 102 mmol/L (98-107); Estimated GFR 94.59 (mL/min/1.73m2); Glucose 111 mg/dL (74-106); LDH 172 U/L (85-227); Potassium 4.2 mmol/L (3.5-5.1); Sodium 139 mmol/L (136-145); Total Protein 8.9 g/dL (6.4-8.2)
[2022-12-03] MEDS: Omnipaque 350 MG/ML 500 ML BTL-Imaging package IJ (11:05)
[2022-12-03] MEDS: Normal Saline - Diluent 50 ML VIAL IJ (11:05)
[2022-12-03] MEDS: Normal Saline Flush 10 ML SYR IVP (11:06)
[2022-12-04 17:20] LABS: Beta-HCG, Quant, Tumor Marker <0.6 IU/L (<1.4)
[2022-12-05 08:21] LABS: AFP Tumor Marker 4.7 ng/mL (<8.1)
== END ==
PROVIDERS: PCP Nurse Practitioner Family; Visit Provider Nurse Practitioner Family
DX: C80.1 Malignant (primary) neoplasm, unspecified (principal); Z85.47 Personal history of malignant neoplasm of testis
CPT/HCPCS: 74177; 80053; 71260; 82105; 83615; 84702; 85025

== ENCOUNTER 2023-10-04 06:09 | Day surgery (SDC) | payer BC, SELFPAY ==
--- NOTE | 2023-10-03 22:42 | PDOC.DSDIS_ITS ---
Date of service: 10/04/23 Time of Service: 08:11 Discharge Plan Disposition Patient Disposition: Home Condition: Good Discharge Details Reason For Visit: colon scope Attending Provider: Marianna Fabian Primary Care Provider: Emy Lopez Home Meds and New Rx's Prescriptions: Continued budesonide-formoterol [Symbicort] 80-4.5 mcg/actuation HFA aerosol inhaler 2 puff inhalation BID Qty: 10.2 3RF acetaminophen 500 MG tablet 1,000 mg PO Q6H PRN Patient Comments: 10/08/16- 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 Take 2 tablets every 6 hours as needed for pain. Do not exceed 4000mg per 24 hours. fluocinonide-emollient [Fluocinonide-E] 0.05 % cream 1 applic Topical 2-4 times daily PRN Qty: 60 3RF Rx Instructions: Apply thin layer to affected areas (hands) 2 to 4 times daily PRN until resolution ibuprofen 200 mg capsule 400 - 600 mg PO Q8H PRN (Reason: pain) Qty: 90 0RF montelukast 10 mg tablet See Rx Instructions .ROUTE .COMPLEX Qty: 90 3RF Dose Instruction: TAKE 1 TABLET BY MOUTH DAILY Rx Instructions: TAKE 1 TABLET BY MOUTH DAILY cetirizine [Zyrtec] 10 mg tablet 10 mg PO DAILY Qty: 90 3RF Rx Instructions: DX: ALLERGIC ASTHMA albuterol sulfate 90 mcg/actuation HFA aerosol inhaler See Rx Instructions .ROUTE .COMPLEX Qty: 8.5 3RF Dose Instruction: INHALE 1 TO 2 PUFFS BY MOUTH EVERY 4 TO 6 HOURS NEEDED FOR SHORTNESS OF BREATH OR WHEEZING Rx Instructions: INHALE 1 TO 2 PUFFS BY MOUTH EVERY 4 TO 6 HOURS NEEDED FOR SHORTNESS OF BREATH OR WHEEZING Discontinued bisacodyl [Dulcolax (bisacodyl)] 5 mg tablet,delayed release (DR/EC) 5 mg PO ONCE Qty: 4 0RF Rx Instructions: Take per colonoscopy instructions provided by ordering providers office Discharge Instructions Additional Instructions: DSU Colonoscopy Post- Op Instructions Instructions for Everyone who is given Anesthesia: For your safety, please do the following for the next twenty-four (24) hours: *Do Not operate a motor vehicle (car, truck, motorcycle, etc.) *Do Not drink alcoholic beverages or use any recreational drugs for the first 24 hours or while taking pain medications. The medications in your body may have a reaction that can be dangerous. *Do Not make any important decisions or sign any important papers. Findings: x2 colon polyps. Otherwise normal Follow up: My office andi send you a letter in 2 wks time, as to what type of polyps they are and when we want to repeat the colonoscopy. 1. No lifting over 20 pounds or strenuous activity for the first 24 hours after your procedure. After 24 hours there are no restrictions on your activity but you may feel fatigued for a few days. 2. After you arrive home you may have a light meal and return to your normal diet as you can tolerate it without feeling sick to your stomach. 3. You may have a bloated, gaseous feeling in your belly (abdomen) after a colonoscopy. Passing gas and belching will help. Walking or lying down on your left side with your knees flexed may relieve the discomfort. Call the office at [phone] (Office) or [phone] (Hospital) right away if you notice any of the following: a.Vomiting of blood or ?coffee ground stools?. b.Rectal bleeding 1Tbsp, blood clots or continuous bleeding. c.Severe belly (abdominal) pain. d.A hard distended belly (abdomen) and an inability to pass gas. 4. Please don?t expect to have a normal BM (bowel movement) for 2-3 days after your procedure. 5. If there are questions regarding the findings of your procedure, please contact your doctor 6. If you are unable to contact your doctor with a problem, contact the hospital at [phone]. 7. Continue all your regular medications unless directed otherwise. I understand the above instructions and have no questions. Signature of Patient or Adult Escort Name of Responsible Adult Escort Signature of Nurse Date/Time Stand Alone Forms: Anesthesia Discharge , Karla Menon (DSU) Activity:: see above Diet:: see above Discharge Orders Discharge Orders: Discharge Order (Routine); Ordered 10/04/23 Ordered By: Marianna Fabian DS: Diagnosis Discharge Diagnosis (1) Screening for malignant neoplasm of colon performed: Status: Acute Asessment and Plan: The patient is seen and examined after their colonoscopy.? The patient has been able to pass gas.? They are not having abdominal pain.? They have been able to tolerate liquids and a snack.? They do not have any nausea or vomiting.? They are not having any chest pain or shortness of breath.??? They are not having any rectal bleeding. Their vital signs have been stable-see nursing notes. We discussed findings during their colonoscopy, and any biopsies that were done/polyps that were removed. The patient will be sent a letter with any biopsy results, and when to repeat the colonoscopy.-see discharge instructions. Patient was given explicit instructions to follow-up regarding colonoscopy-refer to discharge instructions.? We reviewed resumption of medications. Patient verbalized understanding and discharged in stable and satisfactory condition- See nursing notes. (2) Hyperlipidemia, unspecified: Status: Chronic (3) Asthma: Status: Chronic (4) Atopic dermatitis: Status: Chronic (5) Colon polyp: Status: Acute
--- NOTE | 2023-10-03 22:44 | W.COLOREPORT ---
Date of service: 10/04/23 Time of Service: 08:12 Colonoscopy Report Date of procedure: 10/04/23 Pre-op diagnosis general: CRC screening Post-op diagnosis procedure note: other (x2 polyps ) Surgeon: Marianna Fabian Anesthesia Type: General:No Airway Estimated blood loss (mL): 1 Pathology: other Complications: None Disposition: same day Prep: Miralax/Dulcolax Retraction Time: 11 Procedure Description: After informed consent was obtained the patient was taken to the procedure room and placed in a left decubitous position. Monitors were applied and a time out was done. The patients name, date of , procedure, allergies to medications and metal in their body was reviewed. The patient was then sedated. Once sedated and comfortable a rectal exam was done. External exam was normal. Internal exam revealed a normal sphincter tone and no palpable masses. The prostate no palable masses The scope was then introduced and retrofelexed. No internal hemorrhoids were identified. The scope was then advanced to the cecum [w/out difficulty. The TI and appendiceal orifice were identified. The scope was then slowly retracted over minutes back into the rectum. She has x2 polyps that are flat .5cm polyps at 20 & 30cm that are removed w/ a cold biting forcept; all specimens are retrieved an dno bleeding is noted. There are no diverticula or avm's. The mucosa is pink and healthy w/ a normal vascular pattern. The scope was removed and the patient was woken up and taken back to Same day surgery in stable condition. The patient tolerated the procedure well and there were no immediate complications. Follow up: The patient should follow up in 7-10 years unless they develop changes in bowel habits or other new gastrointestinal complaints. Langston Bowel Prep Langston Bowel Prep Right Colon: 2 Left Colon: 2 Transverse Colon: 2 Total Score: 6
[2023-10-04 06:31] VITALS: BP 123/85; PULSE 63; RESP 16; TEMP 36.3; O2SAT 96
[2023-10-04] MEDS: Lactated Ringers 1,000 ML 80 ML IV (06:34)
--- NOTE | 2023-10-04 07:01 | ANES.PREOP_ITS ---
General Info Date of Service Date Performed: 10/04/23 Height: 6 ft 1 in Weight: 95.9 kg Body Mass Index (BMI): 27.8 Surgical Procedure: Operation Date: 10/04/23 07:35 Proposed Procedure Side Surgeon adrianna Fabian, DO Meds Allergies and Home Medications Allergies Allergy/AdvReac Type Severity Reaction Status Date / Time dander Allergy Intermediate nasal Uncoded 10/04/23 06:19 congestion/asthma Home Medication ?Medication ?Instructions ?Recorded acetaminophen 500 mg tablet 1,000 mg PO Q6H PRN 10/08/16 fluocinonide-emollient 0.05 % 1 applic topical 2-4 times daily 04/25/22 topical cream (Fluocinonide-E) PRN #60 grams ibuprofen 200 mg capsule 400 - 600 mg (2 - 3 x 200 mg) PO 10/10/22 Q8H PRN pain #90 caps montelukast 10 mg tablet See Rx Instructions .Route 03/28/23 .COMPLEX #90 tabs cetirizine 10 mg tablet (Zyrtec) 10 mg PO DAILY #90 tab-caps 05/01/23 albuterol sulfate 90 mcg/actuation See Rx Instructions .Route 06/20/23 aerosol inhaler .COMPLEX #8.5 grams budesonide-formoterol HFA 80 2 puff inhalation BID #10.2 grams 07/17/23 mcg-4.5 mcg/actuation aerosol inhaler (Symbicort) Current Visit Medications: Current Medications Generic Name Dose Route Start Last Admin Trade Name Freq PRN Reason Stop Dose Admin Hyoscyamine Sulfate 0.125 mg 10/04/23 09:20 Hyoscyamine 0.125 Mg Sl/Oral/Chew SL 11/03/23 09:19 DIRECTED PRN Ringer's Solution 1,000 mls @ 80 mls/hr 10/04/23 06:00 10/04/23 06:34 IV 10/04/23 23:59 80 mls/hr INFUSION BRONWYN Administration IV Miscellaneous Supplies 1 each 10/04/23 06:00 Iv Access IV 10/04/23 23:59 DIRECTED BRONWYN Ondansetron HCl 4 mg 10/04/23 09:57 Ondansetron 4 Mg/2 Ml Vial IVP 11/03/23 09:56 Q4H PRN PRN Nausea / Vomiting Sodium Chloride 0 ml 10/04/23 06:00 Normal Saline Flush 10 Ml Syr IV 10/04/23 23:59 PRN PRN Sodium Chloride 0 ml 10/04/23 06:00 Normal Saline 10 Ml Vial IJ 10/04/23 23:59 DIRECTED PRN Sterile Water 0 ml 10/04/23 06:00 Water,Injection,Sterile 10 Ml Vial IJ 10/04/23 23:59 DIRECTED PRN PFSH Active Problems Active Problems: Problem Status Onset Code Screening for malignant neoplasm of colon performed Acute Z12.11 Ganglion cyst Acute ~03/2023 M67.40 Plantar fasciitis, right Acute M72.2 Hyperlipidemia, unspecified Chronic E78.5 Asthma Chronic 09/19/12 J45.909 Atopic dermatitis Chronic L20.9 Medical History Medical History Concussion Neck muscle strain Observed seizure-like activity Pt. states this was from a fall where he hit his head twice and that is where the seizure originated from, had work-up and was discharged. No Neuro f/u required. (2021). 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 [facility] R shoulder surgery (~2006) x2 (2006 Michelle at [facility] then 2011 Jyoti at [facility]) Tobacco Smoking/Tobacco Use Status: Never Passive smoking exposure: No Alcohol Alcohol Intake: former Substance Use Substance use: Never Substance use type: does not use Vital Signs and Lab Results Vital Signs Most Recent Vital Signs in EMR: Most Recent Vital Signs Temp Pulse Resp BP Pulse Ox 36.3 C L 63 16 123/85 96 10/04/23 06:31 10/04/23 06:31 10/04/23 06:31 10/04/23 06:31 10/04/23 06:31 Lab Results Blood Type / Crossmatch: No Data to Display Complete Blood Count: No Data to Display Complete Metabolic Panel: No Data to Display Liver Function Panel: No Data to Display Coagulation Panel: No Data to Display Cardiac Panel: No Data to Display Arterial Blood Gas: No Data to Display Venous Blood Gas: No Data to Display Pancreas Panel: No Data to Display Thyroid Panel: No Data to Display Infectious Disease: No Data to Display Blood Cultures: No Data to Display Toxicology Panel: No Data to Display Imaging and Studies Imaging and Studies Study information below may be from another EMR and interpreted by another provider. Please see original notes in EMR for more complete details. EKG Summary: 06/15/2021: Exam: Resting ECG Reason for Exam: loss of consciousness Patient Location: E HR:56 bpm ECG Measurements Heart Rate 56 AXIS VA 216 P 5 QRSd 104 QRS 52 QT 430 T36 QTc 415 Conclusion Sinus bradycardia...rate< 60 Prolonged VA interval...VA >210, V-rate 50- 90 ST elev, probable normal early repol pattern...ST elevation, age<57 I have reviewed and I agree with the emergency room physician's ECG interpretation. Anesthesia Assessment and Plan Anesthesia History Personal History: No History of Anesthesia Complications Family History: No Family History of Anesthesia Complications Exercise Tolerance Exercise Tolerance: Metabolic Equivalents>4 Pertinent Negatives Pertinent Negatives: No Symptoms of GERD, No Major Cardiovascular Symptoms or Complaints and No Major Pulmonary Symptoms or Complaints Cardiac & Pulmonary Exam Cardiac Exam: Normal S1/S2 Heart Sounds Pulmonary Exam: Clear Bilateral Breath Sounds Implantable Cardiac Device Does patient have a Pacemaker or an ICD?: No Airway Exam Known Difficult Airway: No Mallampati Class: 2 Mouth Opening: Normal (> 3cm) Thyromental Distance: Greater than 3 cm Neck Range of Motion: Full ROM Neck Circumference: Normal Teeth Condition: Normal Dentition ASA Classification ASA Score: ASA 2 Emergency Case?: No NPO Status NPO Status: NPO Clears >2 hours, Solids >8 hours Anesthesia Plan Resuscitation Status: Full Code Anesthesia Technique: General Anesthesia Airway Planned: Natural Airway Monitors Used: Standard Monitors
[2023-10-04 07:04] VITALS: BMI 27.8
--- NOTE | 2023-10-04 07:47 | BOWEL_PTH ---
PATIENT: Maurice Whitlock LOC: [facility] U#:[id number] AGE/SX: 48/M ROOM: RE10/04/[address]: Marianna Fabian : 1975 BED: DIS: 10/04/2023 SPEC #: [id number] RECD: 10/04/23 12:47 STATUS: LEIA REYvonne #: [id number] CRISSY: 10/04/23 07:[address]: Marianna Fabian DEPT: Surgical Specimen RECD BY: Carmen Gu ENTERED: 10/04/23 12:48 SP TYPE: Bowel OTHR DR: Emy Lopez, [employer] Tissues: 1 - BIOPSY BOWEL 2 - BIOPSY BOWEL Procedures: GROSS AND MICRO LEVEL 4 Comments: [id number]
[2023-10-04 08:06] VITALS: BP 109/73; PULSE 64; RESP 16; TEMP 36.5; O2SAT 97
--- NOTE | 2023-10-04 08:16 | W.ANESPOSTOP ---
Postoperative Evaluation Date, Time and Location Date Performed: 10/04/23 Time Performed: 08:17 Patient Location: Day Surgery Unit Vital Signs Most Recent Imported Vital Signs: Most Recent Vital Signs Temp Pulse Resp BP Pulse Ox 36.5 C 64 16 109/73 97 10/04/23 08:06 10/04/23 08:06 10/04/23 08:06 10/04/23 08:06 10/04/23 08:06 Pain Score Most Recent Pain Score: Most Recent Pain Score Pain Level 0 10/04/23 08:06 Assessment Mental Status: Arousable with meaningful communication Airway and Respiratory Function: Patent airway with normal (patient baseline) respiratory exam Cardiovascular Function: Hemodynamically Stable Hydration Status: Adequately Hydrated Nausea & Vomiting: No Nausea or Vomiting Pain: Pt. Denies Any Pain Peripheral Nerve Block: Patient did not receive a nerve block
[2023-10-04 08:36] VITALS: BP 125/74; PULSE 76; RESP 18; TEMP 36.6; O2SAT 98
== END 2023-10-04 09:04 | disposition home or self-care (01) ==
LOC: SUR 06:10
PROVIDERS: PCP Nurse Practitioner Adult Health; Visit Provider Surgery
PROC: 0DJD8ZZ Inspection of Lower Intestinal Tract, Via Natural or Artificial Opening Endoscopic (ICD-10-PCS; CPT 45378; principal; 2023-10-04 07:30)
DX: Z12.11 Encounter for screening for malignant neoplasm of colon (principal); K63.5 Polyp of colon
CPT/HCPCS: 45380; 88305; J2001; J2704

== ENCOUNTER 2023-12-06 01:50 | Outpatient (CLI) | payer BC, SELFPAY ==
[2023-12-06 13:19] LABS: Abs Immature Grans 0.01 10^3/uL (0.0-0.06); Absolute Basophil Count 0.05 10^3/uL (0.0-0.2); Absolute Eosinophil Count 0.11 10^3/uL (0.0-0.7); Absolute Lymphocyte Count 1.13 10^3/uL (1.2-3.4); Absolute Monocyte Count 0.38 10^3/uL (0.1-0.8); Absolute Neutrophil Count 2.44 10^3/uL (1.2-6.7); Basophils % 1.2 %; Eosinophils % 2.7 %; HGB 14.4 g/dL (13.5-17.5); Immature Grans % 0.2 %; Lymphocytes % 27.4 %; MCH 31.4 pg (27.0-33.0); MCHC 35.1 % (32.0-36.0); MCV 89 fL (80-95); MPV 9.3 fL (8.0-11.0); Monocytes % 9.2 %; Neutrophils % 59.3 %; Platelet Count 183 10^3/uL (130-400); RBC 4.59 10^6/uL (4.36-5.78); RDW 11.8 % (11.8-14.1); RDW-SD 38.1 fL; WBC 4.12 10^3/uL (4.4-10.8)
[2023-12-06 13:53] LABS: ALT 33 U/L (16-63); AST 17 U/L (15-37); Albumin 4.2 g/dL (3.4-5.0); Alkaline Phosphatase 57 U/L (46-116); Anion Gap 7.2 mmol/L (3-11); BUN 10 mg/dL (7-18); Bilirubin, Total 0.56 mg/dL (0.2-1.0); CO2 28.8 mmol/L (21.0-32.0); CREATININE 0.9 mg/dL (0.70-1.30); Calcium 9.2 mg/dL (8.5-10.1); Chloride 104 mmol/L (98-107); Estimated GFR 106.67 (mL/min/1.73m2); Glucose 94 mg/dL (74-106); LDH 172 U/L (85-227); Potassium 3.8 mmol/L (3.5-5.1); Sodium 140 mmol/L (136-145); Total Protein 7.8 g/dL (6.4-8.2)
[2023-12-06 14:19] LABS: HCG Quant, Pregnancy 1 mIU/mL
[2023-12-09 08:36] LABS: AFP Tumor Marker 4.4 ng/mL (<8.1)
== END 2023-12-06 01:51 | disposition home or self-care (01) ==
PROVIDERS: PCP Nurse Practitioner Adult Health; Visit Provider Nurse Practitioner Family
DX: C80.1 Malignant (primary) neoplasm, unspecified (principal)
CPT/HCPCS: 36415; 80053; 82105; 83615; 84702; 85025

== ENCOUNTER 2025-01-12 01:16 | Outpatient (CLI) | payer BC, SELFPAY ==
[2025-01-12 08:23] LABS: Abs Immature Grans 0.00 10^3/uL (0.0-0.06); HCT 39.9 % (40.0-50.0); HGB 14.1 g/dL (13.5-17.5); Immature Grans % 0.0 %; MCH 30.6 pg (27.0-33.0); MCHC 35.3 % (32.0-36.0); MCV 87 fL (80-95); MPV 9.2 fL (8.0-11.0); Platelet Count 195 10^3/uL (130-400); RBC 4.61 10^6/uL (4.36-5.78); RDW 11.9 % (11.8-14.1); RDW-SD 37.4 fL; WBC 3.68 10^3/uL (4.4-10.8)
[2025-01-12 08:43] LABS: ALT 35 U/L (16-63); AST 14 U/L (15-37); Albumin 4.2 g/dL (3.4-5.0); Alkaline Phosphatase 58 U/L (46-116); Anion Gap 9.4 mmol/L (3-11); BUN 8 mg/dL (7-18); Bilirubin, Total 0.5 mg/dL (0.2-1.0); CO2 26.6 mmol/L (21.0-32.0); Calcium 9.0 mg/dL (8.5-10.1); Chloride 101 mmol/L (98-107); Estimated GFR 109.85 (mL/min/1.73m2); Glucose 103 mg/dL (74-106); Potassium 4.0 mmol/L (3.5-5.1); Sodium 137 mmol/L (136-145); Total Protein 7.7 g/dL (6.4-8.2)
[2025-01-12 08:57] LABS: LDH 166 U/L (85-227)
[2025-01-15 20:38] LABS: Beta-HCG, Quant, Tumor Marker <0.6 IU/L (<1.4)
== END 2025-01-12 01:17 | disposition home or self-care (01) ==
LOC: LBO 01:16
PROVIDERS: PCP Nurse Practitioner Adult Health; Visit Provider Internal Medicine
DX: Z85.47 Personal history of malignant neoplasm of testis (principal); C80.1 Malignant (primary) neoplasm, unspecified
CPT/HCPCS: 36415; 80053; 82105; 83615; 84702; 85025